=== PATIENT | female | born 1975 | race Caucasian/White ===

== ENCOUNTER → 2021-10-13 10:03 | Outpatient (CLI) | payer OTHER, SELFPAY ==
[2021-10-13 11:39] LABS: COVID19 -Nasal RAPID Negative (Negative)
== END ==
PROVIDERS: Visit Provider Specialist
DX: Z01.812 Encounter for preprocedural laboratory examination (principal); Z20.822 Contact with and (suspected) exposure to COVID-19
CPT/HCPCS: 87635

== ENCOUNTER 2021-10-13 12:23 | Day surgery (SDC) | payer OTHER, SELFPAY ==
[2021-10-08 14:14] VITALS: BMI 23.3
[2021-10-13] VITALS (8 sets, daily range): BP systolic 107–116; BP diastolic 69–82; PULSE 54–77; RESP 12–16; TEMP 36.5–37.4; O2SAT 99–100; BMI 23.3
--- NOTE | 2021-10-13 | PATH_ITS ---
[facility] Accession Number: [id number] . 01 Material submitted: . PART A: cervix - CERVICAL SECTION 6 O'CLOCK PART B: cervix - CERVICAL SECTION 12 O'CLOCK PART C: cervix - CERVICAL SECTION 9 O'CLOCK PART D: cervix - CERVICAL SECTION 3 O'CLOCK PART E: cervix - CERVICAL CURETTAGE . 01 Diagnosis: A. Cervix, 6 o'clock, LEEP: Transformation zone mucosa with high-grade squamous intraepithelial lesion (YURI-2/moderate dysplasia). Focal involvement of endocervical resection margin by high-grade squamous intraepithelial lesion. Ectocervical resection margin is negative for high-grade squamous intraepithelial lesion. No invasive malignancy. . B. Cervix, 12 o'clock, LEEP: Transformation zone mucosa with high-grade squamous intraepithelial lesion (YURI-2/moderate dysplasia). Focal involvement of endocervical resection margin by high-grade squamous intraepithelial lesion. Ectocervical resection margin is negative for high-grade squamous intraepithelial lesion. No invasive malignancy. . C. Cervix, 9 o'clock, LEEP: Transformation zone mucosa with low-grade squamous intraepithelial lesion (YURI-1/mild dysplasia). No high-grade dysplasia identified. Resection margins are clear. No invasive malignancy. . D. Cervix, 3 o'clock, LEEP: Focal low-grade squamous intraepithelial lesion (YURI-1/mild dysplasia). No high-grade dysplasia identified. Resection margins are clear. No invasive malignancy. . E. Endocervix, Curetting: Focal squamous metaplastic epithelium with atypia, consistent with low-grade squamous intraepithelial lesion. Benign endocervical epithelium. No high-grade dysplasia or invasive malignancy. [facility] 10/16/2021 1238 Local . 01 Comment: As part of ongoing manufacturing quality inspector, selected slides (A2 and B1) were also reviewed by Dr. Shyann Payne, who concurs with the given interpretation. . 01 Electronically signed: . Mariel Styles MD, Pathologist NPI- [id number] . 01 Gross description: . A. Received in formalin and labeled with the patient's name and cervical biopsy 6 o'clock and consists of an unoriented fragment of cervix measuring 2.2 x 1.3 x 0.7 cm. The ectocervix is pink-campbell, wrinkled, and slightly hemorrhagic. No cervical os is identified. The margin is inked blue and the specimen is serially sectioned and submitted entirely in cassettes A1-A2. B. Received in formalin and labeled with the patient's name and cervical biopsy 12 o'clock and consists of an unoriented fragment of cervix measuring 1.5 x 1.0 x 0.3 cm. The ectocervix is campbell, wrinkled, and unremarkable. The margin is inked blue, and the specimen is serially sectioned and submitted entirely in cassette B1. C. Received in formalin and labeled with the patient's name and cervical biopsy 9 o'clock and consists of an unoriented fragment of cervix measuring 1.8 x 1.2 x 0.4 cm. The ectocervix is campbell, roughened, and granular. The margin is inked blue, and the specimen is serially sectioned and submitted entirely in cassette C1. D. Received in formalin and labeled with the patient's name and cervical biopsy 3 o'clock and consists of two unoriented fragments of cervix, the first measuring 1.2 x 1.2 x 0.2 cm while the second measures 1.0 x 0.7 x 0.4 cm. The ectocervix is pink, roughened, and hemorrhagic. The margin of the first fragment is inked blue, while the margin of the second fragment is inked green. Both fragments are serially sectioned and submitted as follows: . D1: First fragment. D2: Second fragment. . E. Received in formalin and labeled with the patient's name and cervical curettage and consists of multiple fragments of red-campbell soft tissue admixed with mucohemorrhagic material aggregating to 1.2 x 0.5 x 0.1 cm. The specimen is filtered into a biopsy bag and submitted entirely in cassette E1. ([id number]) /[facility] 10/14/2021 1759 Local . 01 Microscopic: . A,B. A p16 immunostain highlights high-grade squamous intraepithelial lesion and also focal involvement of endocervical resection margin by the same (in A2 and B1). Controls stain appropriately. . Technical Note: This test and its performance characteristics have been determined by [employer]. It has not been cleared or approved by the [place] Food and Drug Administration. The FDA has determined that such clearance or approval is not necessary. This test is used for clinical purposes. It should not be regarded as investigational or for research. . 01 Pathologist provided ICD-10: N87.1 . 01 CPT . 315199, 800849, 531430, 938867, 150048, V97181 Specimen Comment: A courtesy copy of this report has been sent to [phone] Performed at: 01 [facility] [address] [place] [address], [place], [place] [id number] MD Jose Allred MD Phone: [phone]
[2021-10-13] MEDS: LACTATED RINGERS 1,000 ML 100 ML IV (13:08)
--- NOTE | 2021-10-13 13:18 | PM.PREOP ---
Pre-operative Note COVID-19 COVID-19 status: Negative Result date/Date tested (Pos, Neg/Pending): 10/13/21 Criteria for continued procedure: Expected advancement of disease process Interval Note History & Physical reviewed/Exam performed by Physician: Yes Changes to H&P: No
--- NOTE | 2021-10-13 14:16 | SUR.OPER ---
Lithotomy on padded OR bed, head on pillow, arms secured on padded arm boards at <90 degrees abduction. Legs secured in padded yellow fins stirrups.
[2021-10-13] MEDS: BUPIVACAINE 0.5% W/ EPI (PF) 30 ML VIAL INJ (14:28)
[2021-10-13] MEDS: FERRIC SUBSULFATE 8 GM SOLUTION 8 ML TOP (14:30)
--- NOTE | 2021-10-13 14:43 | PM.OP.1 ---
Operative Date/Time/Diagnoses Date of procedure: 10/13/21 Time of procedure: 14:43 Pre-op diagnosis: YURI 3 on colpo directed biopsies Post-op diagnosis: same Procedure & Clinicians Procedure: LEEP procedure Same procedure as scheduled: Yes Indications: YURI 3 on colpo directed biopsies Surgeon: Clare Toro Click Yes if Unassisted: Yes Anesthesia Type: General Operative Notes Findings: Normal exam under anesthesia. No nonstaining areas of the cervix with Lugol's. IUD strings in place. Closure Type: not applicable Specimen(s): other (LEEP biopsies 6, 12, 9 and 3:00 o'clock and ECC) Estimated Blood Loss (mL): 10 Blood products transfused: none Procedure in detail: Patient was brought to the operating room she underwent general anesthesia. She was placed in low stirrups. A coated bivalve speculum was placed into the vagina. The cervix was injected with 30 cc of 0.5% Marcaine with epinephrine. A coated single-tooth tenaculum was placed on the anterior lip of the cervix. The cervix was stained with Lugol's. The loop set at 60 W of cutting was used to remove the entire squamocolumnar junction. Because of the IUD strings this was done in 4 sections. 6:00 a.m. followed by 12:00 o'clock. The 6 and 9:00 a.m. were slightly deeper. An ECC was performed. The tissue was cauterized external to the LEEP and further in the endocervical canal with ball cautery to extend the treatment zone. Monsel's was placed. The patient went to recovery room in good condition. Counts of instruments and sponges were correct. The tissue was sent for pathology. Complications: none Post-operative Condition: stable Disposition: same day surgery Plan for aftercare: Home when awake and stable. Treatment and follow-up based on biopsy results.
[2021-10-13] MEDS: KETOROLAC 30 MG/ML VIAL IV (15:03)
== END 2021-10-13 16:00 | disposition home or self-care (01) ==
PROVIDERS: PCP Specialist; Referring Provider Specialist; Visit Provider Specialist
PROC: 0UBC7ZZ Excision of Cervix, Via Natural or Artificial Opening (ICD-10-PCS; CPT 57522; principal; 2021-10-13 13:30)
DX: N87.1 Moderate cervical dysplasia (principal); R87.820 Cervical low risk human papillomavirus (HPV) DNA test positive; Z20.822 Contact with and (suspected) exposure to COVID-19; Z01.812 Encounter for preprocedural laboratory examination
CPT/HCPCS: 57522; 81025; 87635; A9270; J1100; J1885; J2405; J2704; J3010